=== PATIENT | male | born 1960 | race Hispanic/Latino ===

== ENCOUNTER 2018-07-17 10:52 | Inpatient (IN) | payer MEDICARE ==
[2018-07-17 10:52] VITALS: BMI 21.5
[~2018-07-17 10:52] MED LIST: HEMOSTATIC MATRIX 10 ML DIS.NEEDLE TOP ONE
--- NOTE | 2018-07-17 11:38 | ED PDOC ---
HPI: General Adult Time Seen by Provider: 07/17/18 11:22 Chief Complaint (Nursing): Abnormal Labs Chief Complaint (Provider): abnormal labs History Per: Patient, Family History/Exam Limitations: no limitations Onset/Duration Of Symptoms: Days Current Symptoms Are (Timing): Still Present Additional Complaint(s): Carlos Vazquez is a 58 year old male, with a past medical history of Asperger's syndrome, who presents to the emergency department for evaluation of abnormal labs. Patient's edge dyer state on March patient couldn't walk and was spastic from the waist down. Patient was seen by Dr. Alvarez in [place] who believed it might be neurological. He was evaluated by Dr. Cervantes, neurologist, who found patient to have low potassium which was treated and a bulging disc. Patient was found to have low potassium and was advised to come to the ER. He denies any current pain, numbness or tingling, headache, cough, congestion, chest pain, shortness of breath, nausea, vomit, diarrhea, abdominal pain, dizziness or other medical complaints. PMD: None provided. Past Medical History Reviewed: Historical Data, Nursing Documentation, Vital Signs - Medical History PMH: Denies: Chronic Kidney Disease Other PMH: Asperger's syndrome - Surgical History Surgical History: No Surg Hx - Family History Family History: States: Unknown Family Hx - Home Medications Home Medications: Ambulatory Orders Medication Instructions Recorded Magnesium Oxide [Mag-Oxide 400 mg PO 5XD #14 tablet 04/15/18 Magnesium] Potassium Chloride [K-Dur 20 mEq 40 meq PO DAILY #5 tab 04/15/18 ER Tab] - Allergies Allergies/Adverse Reactions: Allergies Allergy/AdvReac Type Severity Reaction Status Date / Time No Known Allergies Allergy Verified 04/12/18 18:07 Review of Systems ROS Statement: Except As Marked, All Systems Reviewed And Found Negative ENT: Negative for: Nose Congestion Cardiovascular: Negative for: Chest Pain Respiratory: Negative for: Cough, Shortness of Breath Gastrointestinal: Negative for: Nausea, Vomiting, Abdominal Pain, Diarrhea Neurological: Negative for: Numbness (tingling), Headache, Dizziness Physical Exam - Reviewed Nursing Documentation Reviewed: Yes Vital Signs Reviewed: Yes - Physical Exam Appears: Positive for: No Acute Distress Head Exam: Positive for: ATRAUMATIC, NORMAL INSPECTION, NORMOCEPHALIC Skin: Positive for: Normal Color, Warm, Dry Eye Exam: Positive for: Normal appearance, EOMI, PERRL Neck: Positive for: Normal, Painless ROM Cardiovascular/Chest: Positive for: Regular Rate, Rhythm. Negative for: Murmur Respiratory: Positive for: Normal Breath Sounds. Negative for: Respiratory Distress Gastrointestinal/Abdominal: Positive for: Normal Exam, Soft. Negative for: Tenderness, Guarding, Rebound Back: Positive for: Normal Inspection. Negative for: L CVA Tenderness, R CVA Tenderness, Vertebral Tenderness Extremity: Negative for: Normal ROM (Stiffness of the arms with limited ROM), Deformity, Swelling Neurologic/Psych: Positive for: Alert, Oriented Medical Decision Making Medical Decision Making: Time: 11:22 Initial Impression: Abnormal labs Initial Plan: --ABO/RH Type --Type and screen --CMP --Troponin I --CBC w/ differential --PTT --PT --Chest portable [RAD] --Sodium Chloride 500 ml IV 100 mls/hr --Reevaluation Scribe Attestation: Documented by José Jarvis, acting as a scribe for Nitish Almeida MD. Provider Scribe Attestation: All medical record entries made by the Scribe were at my direction and personally dictated by me. I have reviewed the chart and agree that the record accurately reflects my personal performance of the history, physical exam, medical decision making, and the department course for this patient. I have also personally directed, reviewed, and agree with the discharge instructions and disposition. 1239: Spoke with Dr. Garza. Will admit for further evaluation of cervical stenosis, abnormal lab hx, and muscle stiffness. Disposition - Clinical Impression Clinical Impression: Hypokalemia, Cervical stenosis of spine - Patient ED Disposition Is Patient to be Admitted: Yes Counseled Patient/Family Regarding: Studies Performed, Diagnosis - Disposition Disposition Time: 12:41 Condition: FAIR - Pt Status Changed To: Hospital Disposition Of: Inpatient - Admit Certification Admit to Inpatient:: After my assessment, the patient will require hospitalization for at least two midnights. This is because of the severity of symptoms shown, intensity of services needed, and/or the medical risk in this patient being treated as an outpatient. - POA Present On Arrival: None
[2018-07-17] MEDS ORDERED: Sodium Chloride 0.9% 500 ML IV STA (11:43)
--- NOTE | 2018-07-17 12:12 | RAD ---
Date of service: 07/17/2018 HISTORY: dyspnea COMPARISON: No prior. FINDINGS: LUNGS: No active pulmonary disease. PLEURA: No significant pleural effusion identified, no pneumothorax apparent. CARDIOVASCULAR: No aortic atherosclerotic calcification present. Normal cardiac size. No pulmonary vascular congestion. OSSEOUS STRUCTURES: No significant abnormalities. VISUALIZED UPPER ABDOMEN: Normal. OTHER FINDINGS: None. IMPRESSION: No active disease.
--- NOTE | 2018-07-17 12:52 | CP.PCM.HP ---
<Rob Da Silva - Last Filed: 07/17/18 16:01> History of Present Illness - History of Present Illness History of Present Illness: 58 year old male, with a PMH of Asperger's syndrome, who presents to the ED for evaluation of abnormal labs. Patient states couldn't walk and was spastic from the waist down last March. Patient was seen by Dr. Alvarez in [place] and also he was evaluated by Dr. Cervantes who found patient to have a bulging disc in cervical spine with stenosis. Patient reports following Dr Wright who scheduled him for laminectomy tomorrow. Patient was found to have low potassium and was advised to come to the ER. He denies any current pain, numbness or tingling, headache, cough, congestion, chest pain, shortness of breath, nausea, vomit, diarrhea, abdominal pain, dizziness or other medical complaints. PMD: None provided. PMH: Asperger's syndrome PSH: denies FMH: father HTN Meds: no meds at home NKDA SH: denies etoh, tobacco, ilicit drugs use. Present on Admission - Present on Admission Any Indicators Present on Admission: No Review of Systems - Review of Systems All systems: reviewed and no additional remarkable complaints except (HPI) Past Patient History - Past Medical History & Family History Past Medical History?: No - Past Social History Smoking Status: Never Smoked - CARDIAC Hx Cardiac Disorders: No - PULMONARY Hx Respiratory Disorders: No - NEUROLOGICAL Hx Neurological Disorder: No - HEENT Hx HEENT Problems: No - RENAL Hx Chronic Kidney Disease: No - ENDOCRINE/METABOLIC Hx Endocrine Disorders: No - HEMATOLOGICAL/ONCOLOGICAL Hx Blood Disorders: No - INTEGUMENTARY Hx Dermatological Problems: No - MUSCULOSKELETAL/RHEUMATOLOGICAL Hx Musculoskeletal Disorders: Yes Other/Comment: Bilateral knee pain and back pain - GASTROINTESTINAL Hx Gastrointestinal Disorders: No - GENITOURINARY/GYNECOLOGICAL Hx Genitourinary Disorders: No - PSYCHIATRIC Hx Psychophysiologic Disorder: No Hx Substance Use: No - SURGICAL HISTORY Hx Surgeries: No - ANESTHESIA Hx Anesthesia: No Hx Anesthesia Reactions: No Meds Allergies/Adverse Reactions: Allergies Allergy/AdvReac Type Severity Reaction Status Date / Time No Known Allergies Allergy Verified 07/20/18 16:11 Physical Exam - Constitutional Appears: No Acute Distress - Head Exam Head Exam: NORMAL INSPECTION - Respiratory Exam Respiratory Exam: Clear to Auscultation Bilateral, NORMAL BREATHING PATTERN - Cardiovascular Exam Cardiovascular Exam: REGULAR RHYTHM, +S1, +S2 - GI/Abdominal Exam GI & Abdominal Exam: Normal Bowel Sounds, Soft. absent: Distended, Tenderness - Extremities Exam Extremities exam: Negative for: pedal edema - Neurological Exam Neurological exam: Alert, Oriented x3 - Psychiatric Exam Psychiatric exam: Normal Mood Results - Labs Result Diagrams: 07/17/18 12:40 07/17/18 12:40 Assessment & Plan - Assessment and Plan (Free Text) Assessment: 58 year old male, with a PMH of Asperger's syndrome admitted due to hypokalemia, patient is scheduled for OR tomorrow, cervical stenosis. Plan: - stable - labs reviewed, low K, replaced - f/u labs in am - CXR negative for lung disease - Neurosurgery consult, recommendations appreciated - scheduled for OR tomorrow - Medically stable for surgery - rest of plan as ordered. Case seen and examined with Dr Garza. <Eleazar Garza - Last Filed: 07/23/18 17:07> Results - Vital Signs Recent Vital Signs: Last Vital Signs Temp 98.4 F 07/20/18 12:43 Pulse 74 07/20/18 12:43 Resp 20 07/20/18 12:43 BP 110/75 07/20/18 12:43 Pulse Ox 97 07/20/18 12:43 - Labs Result Diagrams: 07/20/18 04:50 07/20/18 04:50 Assessment & Plan (1) Cervical stenosis of spine Status: Acute (2) Renal insufficiency Status: Acute - Assessment and Plan (Free Text) Plan: I was present during evaluation and discussed with Dr Avinash crump plans of care and tx, Eleazar Garza M.D.
[2018-07-17 13:00] LABS: BASO # 0.1 K/uL (0.0-0.2); BASO % 1.2 % (0.0-2.0); EOS # 0.2 K/uL (0.0-0.7); EOS % 2.1 % (0.0-4.0); HEMOGLOBIN 14.6 g/dL (12.0-18.0); LYMPH # 1.3 K/uL (1.0-4.3); LYMPH % 13.1 % (20.0-40.0); MEAN CELL VOLUME 92.9 fl (80.0-94.0); MEAN CORPUSCULAR HEMOGLOBIN 30.7 pg (27.0-31.0); MEAN PLATELET VOLUME 9.1 fl (7.2-11.7); MONO # 0.6 K/uL (0.0-0.8); MONO % 5.6 % (0.0-10.0); NEUT # 7.8 K/uL (1.8-7.0); NRBC % 0.1 % (0.0-0.0); RBC 4.77 Mil/uL (4.40-5.90); RED CELL DISTRIBUTION WIDTH 14.4 % (11.5-14.5)
[2018-07-17] MEDS ORDERED: Magnesium Oxide 400 mg Tab UD PO SCH (13:00)
[2018-07-17 13:05] LABS: PROTHROMBIN TIME 11.6 Seconds (9.8-13.1)
[2018-07-17 13:07] LABS: PARTIAL THROMBOPLASTIN TIME 31.5 Seconds (25.6-37.1)
[2018-07-17 13:10] LABS: ALB/GLOB RATIO 1.6 (1.0-2.1); ALBUMIN 4.5 g/dL (3.5-5.0); ALT/SGPT 32 U/L (21-72); AST/SGOT 26 U/L (17-59); BLOOD UREA NITROGEN 26 mg/dl (9-20); CALCIUM 9.8 mg/dL (8.4-10.2); GFR NON-AFRICAN AMERICAN 37
[2018-07-17] MEDS ORDERED: Potassium Chloride 20 mEq ER Tab PO STA (14:15)
[2018-07-17] MEDS ORDERED: Potassium Chloride 20 mEq ER Tab PO ONE (14:26)
[2018-07-18] MEDS ORDERED: Dextrose 5%/Lactated Ringer's 1,000 ML IV SCH ×2 (06:00)
[2018-07-18 06:21] LABS: CALCIUM 9.7 mg/dL (8.4-10.2)
[2018-07-18] MEDS ORDERED: Succinylcholine 200 mg/10 ml Inj IV ONE (07:13)
[2018-07-18] MEDS ORDERED: Propofol 10 mg/ml Inj (20 ML) ONE (07:13)
[2018-07-18] MEDS ORDERED: Bupivacaine 0.5% Inj(30mL) ONE (07:17)
[2018-07-18] MEDS ORDERED: Absorbable Gelatin Sponge Size 12-7 ONE (07:17)
[2018-07-18] MEDS ORDERED: Lidocaine 1% w Epi 1:100,000 Inj ONE (07:17)
[2018-07-18] MEDS ORDERED: Lidocaine 1% Inj (20ml) ONE (07:17)
[2018-07-18] MEDS ORDERED: ceFAZolin IV 1 gm in Dextrose 2 GM/100 ML BAG IVPB ONE (07:18)
[2018-07-18] MEDS ORDERED: Bacitracin Ointment 30 GM TUBE ONE (07:18)
--- NOTE | 2018-07-18 07:27 | CP.PCM.CON ---
History of Present Illness - History of Present Illness History of Present Illness: Neurosurgical consult: Dr. Wright Patient is a 58 y/o male who was admitted for treatment of abnormal labs. Neurosurgery was consulted due to the patient's c/o LE weakness, greater to the left which has been progressively worsening over the past 4 months. This has affected his activities of daily living, especially ambulating, and requires a cane/walker. He has tried and failed conservative management. Patient was seen by Dr. Cervantes and it was determined that the patient developed cervical stenosis due to disc herniation. The patient currently has no complaints of pain/numbness/tingling. He also denies CP/SOB/N/V/D/fever/dysuria/melena. Review of Systems - Review of Systems All systems: reviewed and no additional remarkable complaints except Review of Systems: as per HPI Past Patient History - Past Medical History & Family History Past Medical History?: No Past Family History: Reviewed and not pertinent - Past Social History Smoking Status: Never Smoked Alcohol: None Drugs: Denies - CARDIAC Hx Cardiac Disorders: No - PULMONARY Hx Respiratory Disorders: No - NEUROLOGICAL Hx Neurological Disorder: Yes Other/Comment: aspergen's syndrome - HEENT Hx HEENT Problems: No - RENAL Hx Chronic Kidney Disease: No - ENDOCRINE/METABOLIC Hx Endocrine Disorders: No - HEMATOLOGICAL/ONCOLOGICAL Hx Blood Disorders: No - INTEGUMENTARY Hx Dermatological Problems: No - MUSCULOSKELETAL/RHEUMATOLOGICAL Hx Musculoskeletal Disorders: Yes Hx Falls: No - GASTROINTESTINAL Hx Gastrointestinal Disorders: No - GENITOURINARY/GYNECOLOGICAL Hx Genitourinary Disorders: No - PSYCHIATRIC Hx Psychophysiologic Disorder: No Hx Substance Use: No - SURGICAL HISTORY Hx Surgeries: No - ANESTHESIA Hx Anesthesia: No Hx Anesthesia Reactions: No Meds Allergies/Adverse Reactions: Allergies Allergy/AdvReac Type Severity Reaction Status Date / Time No Known Allergies Allergy Verified 04/12/18 18:07 - Medications Medications: Current Medications Dextrose/Lactated Ringer's (Dextrose 5%/Lactated Ringer's) 1,000 mls @ 100 mls/hr IV .Q10H YUE Stop: 07/19/18 00:57 Last Admin: 07/18/18 06:23 Dose: 100 mls/hr Physical Exam - Constitutional Appears: Well, No Acute Distress - Head Exam Head Exam: ATRAUMATIC, NORMOCEPHALIC - Eye Exam Eye Exam: EOMI, Normal appearance, PERRL - ENT Exam ENT Exam: Mucous Membranes Moist - Neck Exam Additional comments: no masses, no lesions, no deformities no midline or paraspinal tenderness Gross NVI distally to UE HAGEN, diminished motor to LUE and LLE radial pulses intact neg clonus - Respiratory Exam Respiratory Exam: NORMAL BREATHING PATTERN - Cardiovascular Exam Cardiovascular Exam: +S1, +S2 - GI/Abdominal Exam GI & Abdominal Exam: Soft. absent: Tenderness - Neurological Exam Neurological exam: Alert, Oriented x3 - Psychiatric Exam Psychiatric exam: Normal Affect, Normal Mood - Skin Skin Exam: Normal Color, Warm Results - Vital Signs Recent Vital Signs: Last Vital Signs Temp 98.2 F 07/18/18 01:42 Pulse 67 07/18/18 01:42 Resp 20 07/18/18 01:42 BP 128/75 07/18/18 01:42 Pulse Ox 99 07/18/18 01:42 - Labs Result Diagrams: 07/17/18 12:40 07/18/18 05:20 Labs: Laboratory Results - last 24 hr 07/17/18 07/17/18 07/17/18 12:40 12:40 12:40 WBC 10.0 RBC 4.77 Hgb 14.6 Hct 44.3 MCV 92.9 MCH 30.7 MCHC 33.0 RDW 14.4 Plt Count 188 MPV 9.1 Neut % (Auto) 78.0 H Lymph % (Auto) 13.1 L Reeves % (Auto) 5.6 Eos % (Auto) 2.1 Baso % (Auto) 1.2 Neut # (Auto) 7.8 H Lymph # (Auto) 1.3 Reeves # (Auto) 0.6 Eos # (Auto) 0.2 Baso # (Auto) 0.1 PT INR APTT Sodium 140 Potassium 3.4 L Chloride 98 Carbon Dioxide 29 Anion Gap 16 BUN 26 H Creatinine 1.9 H Est GFR ( Amer) 44 Est GFR (Non-Af Amer) 37 Random Glucose 102 Calcium 9.8 Total Bilirubin 0.9 AST 26 ALT 32 Alkaline Phosphatase 56 Troponin I < 0.0120 Total Protein 7.4 Albumin 4.5 Globulin 2.9 Albumin/Globulin Ratio 1.6 Blood Type O POSITIVE Blood Type Confirm Antibody Screen Negative BBK History Checked No verified bt 11/20/18 11/20/18 11/21/18 12:40 13:16 05:20 WBC RBC Hgb Hct MCV MCH MCHC RDW Plt Count MPV Neut % (Auto) Lymph % (Auto) Reeves % (Auto) Eos % (Auto) Baso % (Auto) Neut # (Auto) Lymph # (Auto) Reeves # (Auto) Eos # (Auto) Baso # (Auto) PT 11.6 INR 1.0 APTT 31.5 Sodium 138 Potassium 3.6 Chloride 99 Carbon Dioxide 28 Anion Gap 15 BUN 26 H Creatinine 1.9 H Est GFR ( Amer) 44 Est GFR (Non-Af Amer) 37 Random Glucose 109 Calcium 9.7 Total Bilirubin AST ALT Alkaline Phosphatase Troponin I Total Protein Albumin Globulin Albumin/Globulin Ratio Blood Type Blood Type Confirm O POSITIVE Antibody Screen BBK History Checked - Impressions Impression: Accession No. : [id number] Patient Name / ID : DAWN Dinh / [id number] Exam Date : 06/13/2018 12:18:52 ( Approved ) Study Comment : Sex / Age : M / 58Y Creator : Tho Smith MD Dictator : Tho Smith MD Airflight Attendants Supervisor : Lan Engineer : Tho Smith MD Approver2 : Report Date : 06/13/2018 13:20:47 My Comment : Date of service: 06/13/2018 PROCEDURE: MR CERVICAL SPINE WITHOUT CONTRAST HISTORY: PAIN COMPARISON: None available. TECHNIQUE: Multiecho multiplanar sequences were performed through the cervical spine without the use of intravenous contrast. FINDINGS: Normal lordotic curvature. Craniocervical junction unremarkable. Vertebral body heights preserved. No marrow signal abnormality. Normal cervical cord. No paraspinal abnormality. C2-C3: No disc herniation, spinal canal stenosis or neural foraminal narrowing. C3-C4: There is a large asymmetric disc protrusion left greater than right. This produces severe central canal stenosis with flattening of the cervical cord and cord edema. There is also foraminal stenosis left greater than right C4-C5: Mild disc bulge. C5-C6: Disc bulge and osteophytic ridge with mild central stenosis and bilateral foraminal stenosis C6-C7: Disc bulge with bilateral foraminal stenosis. Mild central stenosis C7-T1: No disc herniation, spinal canal stenosis or neural foraminal narrowing. OTHER FINDINGS: None. IMPRESSION: Multilevel degenerative changes. Severe stenosis with cord flattening and cord edema at C3-4 Assessment & Plan (1) Cervical stenosis of spine Assessment and Plan: -OR today for anterior cervical discectomy and fusion at C3-C4 -It was discussed with the patient that he may need a cervical laminectomy and fusion in the future -Risks/benefits/alternatives were discussed with the patient in detail. The patient expresses understanding and agrees to proceed with above procedure. -above d/w Dr. Wright in agreement Status: Acute
[2018-07-18] MEDS ORDERED: Midazolam 2 MG/2 ML VIAL ONE (07:38)
[2018-07-18] MEDS ORDERED: Sodium Chloride 0.9% 1,000 ML IV ONE (07:40)
[2018-07-18] MEDS ORDERED: Lactated Ringer's 1,000 ML IV ONE (07:50)
[2018-07-18] MEDS ORDERED: Rocuronium 10 mg/ml (5 ml) ONE (07:55)
[2018-07-18] MEDS ORDERED: Phenylephrine 10 mg/ml Inj ONE (08:01)
[2018-07-18] MEDS ORDERED: ePHEDrine 50 mg/ml Inj ONE (08:05)
[2018-07-18] MEDS ORDERED: Neostigmine 1:1000 (1 mg/ml) Inj ONE (08:29)
[2018-07-18] MEDS ORDERED: Dexamethasone 4 mg/1 ml ONE (08:32)
[2018-07-18] MEDS ORDERED: Esmolol 100 mg/10ml Inj IV ONE (08:51)
[2018-07-18] MEDS ORDERED: HYDROmorphone 0.5 mg/0.5 ml ISec IVP PRN (09:12)
[2018-07-18] MEDS ORDERED: Sodium Chloride 0.9% 500 ML IV ONE (09:15)
[2018-07-18] MEDS ORDERED: Lactated Ringer's 1,000 ML IV SCH ×2 (09:30→10:15)
[2018-07-18] MEDS ORDERED: Morphine 4 MG/ML VIAL IVP PRN (10:14)
[2018-07-18] MEDS ORDERED: Oxycodone/Acetaminophen 5/325 mg Tab PO PRN ×2 (10:14)
--- NOTE | 2018-07-18 10:24 | PCM.SURG1 ---
Surgeon's Initial Post Op Note - Surgeon's Notes Surgeon: Estuardo Wright MD Authorization Nurse: Ramon Birmingham PA-C Type of Anesthesia: General Endo Anesthesia Administered By: Linda PABLO Pre-Operative Diagnosis: Cervical stenosis Operative Findings: Cervical stenosis at C3-C4 Post-Operative Diagnosis: as above Operation Performed: Anterior cervical discectomy and fusion at C3-C4 Specimen/Specimens Removed: none Estimated Blood Loss: EBL {In ML}: 10 Blood Products Given: N/A Drains Used: Bubba Pichardo Post-Op Condition: Good Date of Surgery/Procedure: 07/18/18 Time of Surgery/Procedure: 08:05
--- NOTE | 2018-07-18 12:05 | OP ---
PROCEDURE DATE: 07/18/2018 PREOPERATIVE DIAGNOSIS: Cervical spondylosis with myelopathy. POSTOPERATIVE DIAGNOSIS: Cervical spondylosis with myelopathy. PROCEDURES: Partial vertebrectomy of C3-C4, diskectomy of C3-C4, interbody fusion of C3-C4 using polyetheretherketone and bone, plating instrumentation by using a spinal element from C3-C4. SURGEON: Estuardo Wright M.D. WEATHERIZATION OPERATIONS MANAGER: Ramon Birmingham, physician respiratory therapy assistant, who helped me perform the surgery, stayed from the beginning to the end. DESCRIPTION OF PROCEDURE: The patient was brought to the operating room, anesthetized with general endotracheal anesthesia, placed in a supine position. Head was placed on a donut. Care was taken to protect all the pressure points. Right side of the neck was thoroughly prepped in the same sterile manner. After marking the skin incision for vertebrectomy, after prepping and draping the area, skin has been incised. Bleeding skin has been controlled with bipolar jalousie installer. After using a Bovie jalousie installer, platysma has been cut. Dissection has been carried out to trachea and esophagus medially. Sternomastoid carried out laterally. Prevertebral fascia has been cauterized and cut. Identification of levels has been done with the help of fluoroscopy. Longus colli has been detached from attachment of vertebral bodies of C3-C4. Dyonics retractor has been applied. Rest of the operation has been carried out under microscopic magnification and illumination. PARTIAL VERTEBRECTOMY OF C3 AND C4 AND DISKECTOMY OF C3-C4: By using a high-speed drill, the vertebral bodies of C3 and C4 have been drilled. Drilling was continued posteriorly. Intermittent diskectomy has been performed. Partial vertebrectomy including removal of the cartilage and placing the half of the vertebral body done. Intermittent diskectomy was performed. There was calcified that has been removed and posterior longitudinal ligament has been further opened. Dura has been decompressed from side to side. INTERBODY FUSION OF THE C3-C4 BY USING A PEEK AND BONE: A PEEK implant has been brought in and filled with demineralized bone, and gently tapped into space creating a partial vertebrectomy of C3-4. Position has been confirmed to be good. PLATING AND INSTRUMENTATION C3 TO C4 BY USING SPINAL ELEMENTS AMENDIA PLATE: The plate has been placed at vertebral bodies of C3-5 by using 12-mm screw. It has been secured under fluoroscopic-guided control. Hemostasis was best achieved. Bubba drain was placed in the wound and brought out through a separate stab neck skin incision. Platysma was closed with 3-0 Vicryl. Skin has been closed with intradermal 3-0 Vicryl stitches. The patient tolerated the procedure. After procedure, mobilized to the recovery room in stabilized condition. Estuardo Wright MD
[2018-07-18] MEDS ORDERED: Dexamethasone 4 MG in Sodium Chloride 0.9% 50 ML IVPB SCH (16:00)
[2018-07-18] MEDS: Dexamethasone 4 mg/1 ml IV SCH ×2 (17:29→22:00)
[2018-07-18] MEDS: ceFAZolin IV 1 gm in Dextrose 1 GM/50 ML BAG IVPB SCH (18:05)
[2018-07-19] MEDS: ceFAZolin IV 1 gm in Dextrose 1 GM/50 ML BAG IVPB SCH ×3 (01:16→17:04)
[2018-07-19] MEDS: Dexamethasone 4 mg/1 ml IV SCH ×2 (03:58→11:08)
[2018-07-19 05:48] LABS: HEMOGLOBIN 13.3 g/dL (12.0-18.0); MEAN CORPUSCULAR HEMOGLOBIN 30.7 pg (27.0-31.0); MEAN CORPUSCULAR HGB CONC 33.8 g/dL (33.0-37.0); RBC 4.34 Mil/uL (4.40-5.90); RED CELL DISTRIBUTION WIDTH 14.2 % (11.5-14.5); WHITE BLOOD COUNT 12.1 K/uL (4.8-10.8)
[2018-07-19 06:05] LABS: CALCIUM 9.8 mg/dL (8.4-10.2)
--- NOTE | 2018-07-19 12:00 | RAD ---
Date of service: 07/18/2018 PROCEDURE: Intraoperative Fluoroscopy. HISTORY: OR FLUORO FINDINGS: Fluoroscopic assistance was provided for ACDL. Please refer to the operative report from KASSANDRA Stapleton DR, MD. Total fluoroscopic time (continuous mode) utilized during the procedure 6.7 seconds.
--- NOTE | 2018-07-19 14:26 | CARD ---
APPROVED REPORT Date of service: 07/18/2018 EKG Measurement Heart [id number] CT [id number] <Conclusion> Sinus rhythm with short CT Junctional ST depression, probably normal Borderline ECG
[2018-07-20 05:17] LABS: HEMOGLOBIN 13.5 g/dL (12.0-18.0); MEAN CORPUSCULAR HEMOGLOBIN 30.9 pg (27.0-31.0); MEAN CORPUSCULAR HGB CONC 33.9 g/dL (33.0-37.0); RBC 4.39 Mil/uL (4.40-5.90); RED CELL DISTRIBUTION WIDTH 13.8 % (11.5-14.5); WHITE BLOOD COUNT 14.9 K/uL (4.8-10.8)
[2018-07-20 05:29] LABS: CALCIUM 9.7 mg/dL (8.4-10.2)
[2018-07-20 08:26] VITALS: RESP 20; O2SAT 97
--- NOTE | 2018-07-20 09:55 | CP.PCM.PN ---
Subjective - Date & Time of Evaluation Date of Evaluation: 07/20/18 Time of Evaluation: 09:52 - Subjective Subjective: Patient feels a little stiffness in his neck. He says tingling in hand the same, but his legs feel a little better. Denies CP/SOB/dizziness. Objective - Vital Signs/Intake and Output Vital Signs (last 24 hours): Temp Pulse Resp BP Pulse Ox 97.5 F L 79 20 141/84 97 07/20/18 08:25 07/20/18 08:25 07/20/18 08:25 07/20/18 08:25 07/20/18 08:25 Intake and Output: 07/20/18 07/20/18 06:59 18:59 Intake Total 400 Output Total 5 Balance 395 - Medications Medications: Current Medications Acetaminophen (Tylenol 325mg Tab) 650 mg PO Q4 PRN PRN Reason: Fever 101 degrees fahrenheit Cyclobenzaprine HCl (Flexeril) 10 mg PO Q8 PRN PRN Reason: Muscle spasm Last Admin: 07/19/18 17:09 Dose: 10 mg Docusate Sodium (Colace) 100 mg PO BID YUE Last Admin: 07/20/18 09:51 Dose: Not Given Morphine Sulfate (Morphine) 2 mg IVP Q4 PRN PRN Reason: Pain, severe (8-10) Oxycodone/Acetaminophen (Percocet 5/325 Mg Tab) 2 tab PO Q4 PRN PRN Reason: Pain, moderate (4-7) Stop: 07/21/18 10:15 Oxycodone/Acetaminophen (Percocet 5/325 Mg Tab) 1 tab PO Q4 PRN PRN Reason: Pain, Mild (1-3) Stop: 07/21/18 10:15 - Labs Labs: 07/20/18 04:50 07/20/18 04:50 PT 11.6 Seconds (9.8-13.1) 07/17/18 12:40 INR 1.0 07/17/18 12:40 APTT 31.5 Seconds (25.6-37.1) 07/17/18 12:40 - Neck Exam Additional comments: JUDITH pulled, 5-5 last 24 hrs. Incision intact, dry, no erythema, minimal swelling. Dressing changed. +ROM fingers, wrists, ankles/toes PT appreciated, recommend TCU Assessment and Plan (1) Cervical stenosis of spine Assessment & Plan: POD#2 s/p C3/C4 ACDF PT/OT stable for d/c to TCU soft collar cont pain medications prn d/w dr. Wright, agrees with above Status: Acute
[2018-07-20 12:44] VITALS: BP 110/75; PULSE 74; TEMP 98.4
--- NOTE | 2018-07-20 14:38 | CP.PCM.DIS ---
<Rob Da Silva - Last Filed: 07/20/18 14:39> Provider - Provider Date of Admission: 07/17/18 12:08 Attending physician: Eleazar Garza MD Time Spent in preparation of Discharge (in minutes): 37 Diagnosis - Discharge Diagnosis (1) Cervical stenosis of spine Status: Acute (2) Hypokalemia Status: Acute (3) Ataxia Status: Acute Hospital Course - Lab Results Lab Results: Most Recent Lab Values WBC 14.9 K/uL (4.8-10.8) H 07/20/18 04:50 RBC 4.39 Mil/uL (4.40-5.90) L 07/20/18 04:50 Hgb 13.5 g/dL (12.0-18.0) 07/20/18 04:50 Hct 39.9 % (35.0-51.0) 07/20/18 04:50 MCV 91.0 fl (80.0-94.0) 07/20/18 04:50 MCH 30.9 pg (27.0-31.0) 07/20/18 04:50 MCHC 33.9 g/dL (33.0-37.0) 07/20/18 04:50 RDW 13.8 % (11.5-14.5) 07/20/18 04:50 Plt Count 152 K/uL (130-400) 07/20/18 04:50 MPV 9.1 fl (7.2-11.7) 07/17/18 12:40 Neut % (Auto) 78.0 % (50.0-75.0) H 07/17/18 12:40 Lymph % (Auto) 13.1 % (20.0-40.0) L 07/17/18 12:40 Nash % (Auto) 5.6 % (0.0-10.0) 07/17/18 12:40 Eos % (Auto) 2.1 % (0.0-4.0) 07/17/18 12:40 Baso % (Auto) 1.2 % (0.0-2.0) 07/17/18 12:40 Neut # (Auto) 7.8 K/uL (1.8-7.0) H 07/17/18 12:40 Lymph # (Auto) 1.3 K/uL (1.0-4.3) 07/17/18 12:40 Nash # (Auto) 0.6 K/uL (0.0-0.8) 07/17/18 12:40 Eos # (Auto) 0.2 K/uL (0.0-0.7) 07/17/18 12:40 Baso # (Auto) 0.1 K/uL (0.0-0.2) 07/17/18 12:40 PT 11.6 Seconds (9.8-13.1) 07/17/18 12:40 INR 1.0 07/17/18 12:40 APTT 31.5 Seconds (25.6-37.1) 07/17/18 12:40 Sodium 137 mmol/l (132-148) 07/20/18 04:50 Potassium 3.9 MMOL/L (3.6-5.0) 07/20/18 04:50 Chloride 98 mmol/L (98-107) 07/20/18 04:50 Carbon Dioxide 26 mmol/L (22-30) 07/20/18 04:50 Anion Gap 17 (10-20) 07/20/18 04:50 BUN 42 mg/dl (9-20) H 07/20/18 04:50 Creatinine 1.9 mg/dl (0.8-1.5) H 07/20/18 04:50 Est GFR ( Amer) 44 07/20/18 04:50 Est GFR (Non-Af Amer) 37 07/20/18 04:50 Random Glucose 130 mg/dL (75-110) H 07/20/18 04:50 Calcium 9.7 mg/dL (8.4-10.2) 07/20/18 04:50 Total Bilirubin 0.9 mg/dl (0.2-1.3) 07/17/18 12:40 AST 26 U/L (17-59) 07/17/18 12:40 ALT 32 U/L (21-72) 07/17/18 12:40 Alkaline Phosphatase 56 U/L (38-126) 07/17/18 12:40 Troponin I < 0.0120 ng/mL (0.00-0.120) 07/17/18 12:40 Total Protein 7.4 G/DL (6.3-8.2) 07/17/18 12:40 Albumin 4.5 g/dL (3.5-5.0) 07/17/18 12:40 Globulin 2.9 gm/dL (2.2-3.9) 07/17/18 12:40 Albumin/Globulin Ratio 1.6 (1.0-2.1) 07/17/18 12:40 Blood Type O POSITIVE 07/17/18 12:40 Blood Type Confirm O POSITIVE 07/17/18 13:16 Antibody Screen Negative 07/17/18 12:40 BBK History Checked No verified bt 07/17/18 12:40 - Hospital Course Hospital Course: 58 year old male, with a PMH of Asperger's syndrome who was admitted due to ataxia and a bulging disc in cervical spine with stenosis. Patient underwent laminectomy with by Dr Wright. Currently POD 2 s/p C3/C4 ACDF. Working on PT/OT. Patient doing well, stable, going to TCU to continue PT. Discharge Exam - Head Exam Head Exam: NORMAL INSPECTION - Neck Exam Additional comments: Incision looks clean, dry, drainage removed. - Respiratory Exam Respiratory Exam: Clear to PA & Lateral, NORMAL BREATHING PATTERN - Cardiovascular Exam Cardiovascular Exam: REGULAR RHYTHM, +S1, +S2 - GI/Abdominal Exam GI & Abdominal Exam: Normal Bowel Sounds, Soft. absent: Distended, Tenderness - Neurological Exam Neurological exam: Alert, Oriented x3 Discharge Plan - Follow Up Plan Condition: FAIR Disposition: TRANSF TO SNF Instructions: Posterior Cervical Fusion (DC), Intervertebral Discectomy (DC), Postspine Surgery Precautions Additional Instructions: discharge pt to tcu I was present during discharge and discussed with Dr Avinash crump plans of care and tx, Referrals: Estuardo Wright MD [Staff Provider] - <Eleazar Garza - Last Filed: 07/23/18 17:08> Provider - Provider Date of Admission: 07/17/18 12:08 Attending physician: Eleazar Garza MD Diagnosis - Discharge Diagnosis (1) Cervical stenosis of spine Status: Acute (2) Renal insufficiency Status: Acute Hospital Course - Lab Results Lab Results: Most Recent Lab Values WBC 14.9 K/uL (4.8-10.8) H 07/20/18 04:50 RBC 4.39 Mil/uL (4.40-5.90) L 07/20/18 04:50 Hgb 13.5 g/dL (12.0-18.0) 07/20/18 04:50 Hct 39.9 % (35.0-51.0) 07/20/18 04:50 MCV 91.0 fl (80.0-94.0) 07/20/18 04:50 MCH 30.9 pg (27.0-31.0) 07/20/18 04:50 MCHC 33.9 g/dL (33.0-37.0) 07/20/18 04:50 RDW 13.8 % (11.5-14.5) 07/20/18 04:50 Plt Count 152 K/uL (130-400) 07/20/18 04:50 MPV 9.1 fl (7.2-11.7) 07/17/18 12:40 Neut % (Auto) 78.0 % (50.0-75.0) H 07/17/18 12:40 Lymph % (Auto) 13.1 % (20.0-40.0) L 07/17/18 12:40 Nash % (Auto) 5.6 % (0.0-10.0) 07/17/18 12:40 Eos % (Auto) 2.1 % (0.0-4.0) 07/17/18 12:40 Baso % (Auto) 1.2 % (0.0-2.0) 07/17/18 12:40 Neut # (Auto) 7.8 K/uL (1.8-7.0) H 07/17/18 12:40 Lymph # (Auto) 1.3 K/uL (1.0-4.3) 07/17/18 12:40 Nash # (Auto) 0.6 K/uL (0.0-0.8) 07/17/18 12:40 Eos # (Auto) 0.2 K/uL (0.0-0.7) 07/17/18 12:40 Baso # (Auto) 0.1 K/uL (0.0-0.2) 07/17/18 12:40 PT 11.6 Seconds (9.8-13.1) 07/17/18 12:40 INR 1.0 07/17/18 12:40 APTT 31.5 Seconds (25.6-37.1) 07/17/18 12:40 Sodium 137 mmol/l (132-148) 07/20/18 04:50 Potassium 3.9 MMOL/L (3.6-5.0) 07/20/18 04:50 Chloride 98 mmol/L (98-107) 07/20/18 04:50 Carbon Dioxide 26 mmol/L (22-30) 07/20/18 04:50 Anion Gap 17 (10-20) 07/20/18 04:50 BUN 42 mg/dl (9-20) H 07/20/18 04:50 Creatinine 1.9 mg/dl (0.8-1.5) H 07/20/18 04:50 Est GFR ( Amer) 44 07/20/18 04:50 Est GFR (Non-Af Amer) 37 07/20/18 04:50 Random Glucose 130 mg/dL (75-110) H 07/20/18 04:50 Calcium 9.7 mg/dL (8.4-10.2) 07/20/18 04:50 Total Bilirubin 0.9 mg/dl (0.2-1.3) 07/17/18 12:40 AST 26 U/L (17-59) 07/17/18 12:40 ALT 32 U/L (21-72) 07/17/18 12:40 Alkaline Phosphatase 56 U/L (38-126) 07/17/18 12:40 Troponin I < 0.0120 ng/mL (0.00-0.120) 07/17/18 12:40 Total Protein 7.4 G/DL (6.3-8.2) 07/17/18 12:40 Albumin 4.5 g/dL (3.5-5.0) 07/17/18 12:40 Globulin 2.9 gm/dL (2.2-3.9) 07/17/18 12:40 Albumin/Globulin Ratio 1.6 (1.0-2.1) 07/17/18 12:40 Blood Type O POSITIVE 07/17/18 12:40 Blood Type Confirm O POSITIVE 07/17/18 13:16 Antibody Screen Negative 07/17/18 12:40 BBK History Checked No verified bt 07/17/18 12:40
--- NOTE | 2018-07-23 16:56 | CP.PCM.PN ---
Subjective - Date & Time of Evaluation Date of Evaluation: 07/18/18 Time of Evaluation: 10:00 - Subjective Subjective: Patient is doing very well post op Has minimal pain on the op site Has no fever. Objective - Vital Signs/Intake and Output Vital Signs (last 24 hours): Temp Pulse Resp BP Pulse Ox 98.4 F 74 20 110/75 97 07/20/18 12:43 07/20/18 12:43 07/20/18 12:43 07/20/18 12:43 07/20/18 12:43 - Labs Labs: 07/20/18 04:50 07/20/18 04:50 PT 11.6 Seconds (9.8-13.1) 07/17/18 12:40 INR 1.0 07/17/18 12:40 APTT 31.5 Seconds (25.6-37.1) 07/17/18 12:40 - Head Exam Head Exam: NORMAL INSPECTION - Eye Exam Eye Exam: Normal appearance - Respiratory Exam Respiratory Exam: Clear to Ausculation Bilateral - Cardiovascular Exam Cardiovascular Exam: REGULAR RHYTHM - GI/Abdominal Exam GI & Abdominal Exam: Soft, Normal Bowel Sounds - Neurological Exam Neurological Exam: Awake, Oriented x3 Assessment and Plan (1) Cervical stenosis of spine Status: Acute (2) Renal insufficiency Status: Acute - Assessment and Plan (Free Text) Plan: Con tmeds Cont tx Cont PT subacute rehab eval
--- NOTE | 2018-07-23 16:59 | CP.PCM.PN ---
Subjective - Date & Time of Evaluation Date of Evaluation: 07/19/18 Time of Evaluation: 11:25 - Subjective Subjective: Patient is doing a lot better Has no chest pain or SOB Doing well with PT. Objective - Vital Signs/Intake and Output Vital Signs (last 24 hours): Temp Pulse Resp BP Pulse Ox 98.4 F 74 20 110/75 97 07/20/18 12:43 07/20/18 12:43 07/20/18 12:43 07/20/18 12:43 07/20/18 12:43 - Labs Labs: 07/20/18 04:50 07/20/18 04:50 PT 11.6 Seconds (9.8-13.1) 07/17/18 12:40 INR 1.0 07/17/18 12:40 APTT 31.5 Seconds (25.6-37.1) 07/17/18 12:40 - Head Exam Head Exam: NORMAL INSPECTION - Eye Exam Eye Exam: Normal appearance - ENT Exam ENT Exam: Mucous Membranes Moist - Respiratory Exam Respiratory Exam: Clear to Ausculation Bilateral - Cardiovascular Exam Cardiovascular Exam: REGULAR RHYTHM - GI/Abdominal Exam GI & Abdominal Exam: Normal Bowel Sounds - Neurological Exam Neurological Exam: Awake, Oriented x3 - Psychiatric Exam Psychiatric exam: Normal Mood Assessment and Plan (1) Cervical stenosis of spine Status: Acute (2) Renal insufficiency Status: Acute - Assessment and Plan (Free Text) Plan: Cont meds Cont tx Cont PT Subacute rehab eval
== END 2018-07-20 16:00 | DRG 472 ==
LOC: H.ER 10:52 → H.ERHOLD 12:08 → H.MEDSURG1 21:38 → H.TEL 07-18 11:41
PROVIDERS: ADMIT Family Medicine; ATTEND Family Medicine
PROC: 0RG20A0 Fusion of 2 or more Cervical Vertebral Joints with Interbody Fusion Device, Anterior Approach, Anterior Column, Open Approach (ICD-10-PCS; 2018-07-18)
PROC: 0RB30ZZ Excision of Cervical Vertebral Disc, Open Approach (ICD-10-PCS; principal; 2018-07-18 07:45)
DX: M47.12 Other spondylosis with myelopathy, cervical region (principal); F84.5 Asperger's syndrome; M50.01 Cervical disc disorder with myelopathy, high cervical region; M48.02 Spinal stenosis, cervical region; E87.6 Hypokalemia

== ENCOUNTER 2018-07-20 15:13 | Inpatient (IN) | payer OTHER ==
[2018-07-20 16:16] VITALS: BMI 24.0
[2018-07-20] MEDS ORDERED: Oxycodone/Acetaminophen 5/325 mg Tab PO PRN ×2 (16:24)
[2018-07-20 16:50] VITALS: RESP 20
--- NOTE | 2018-07-23 09:55 | CP.PCM.PN ---
Subjective - Date & Time of Evaluation Date of Evaluation: 07/23/18 Time of Evaluation: 07:30 - Subjective Subjective: Patient seen and examined OOB to chair comfortable. Pain well controlled. No acute events over weekend. Notes that his L sided weakness/stiffness has improved postop. Objective - Vital Signs/Intake and Output Vital Signs (last 24 hours): Temp Pulse Resp BP Pulse Ox 98.2 F 72 20 132/69 99 07/23/18 08:33 07/23/18 08:33 07/23/18 08:33 07/23/18 08:33 07/23/18 08:33 - Medications Medications: Current Medications Acetaminophen (Tylenol 325mg Tab) 650 mg PO Q4 PRN PRN Reason: Fever 101 degrees fahrenheit Acetaminophen (Tylenol 325mg Tab) 325 mg PO Q4 PRN PRN Reason: Pain, Mild (1-3) Cyclobenzaprine HCl (Flexeril) 10 mg PO Q8 PRN PRN Reason: Muscle spasm Docusate Sodium (Colace) 100 mg PO BID YUE Last Admin: 07/23/18 08:12 Dose: Not Given Oxycodone/Acetaminophen (Percocet 5/325 Mg Tab) 1 tab PO Q4 PRN PRN Reason: Pain, Mild (1-3) Stop: 07/23/18 16:25 Oxycodone/Acetaminophen (Percocet 5/325 Mg Tab) 2 tab PO Q4 PRN PRN Reason: Pain, moderate (4-7) Stop: 07/23/18 16:25 - Extremities Exam Additional comments: Dressings CDI Incision CDI with dermabond, drain site CDI no masses, no lesions, no deformities no midline or paraspinal tenderness Gross NVI distally to UE HAGEN, diminished motor to LUE and LLE radial pulses intact neg clonus Assessment and Plan (1) Cervical stenosis of spine Assessment & Plan: -Dressings removed, wound clean and dry, leave to air -PT/OT WBAT -neurosurgically stable -above d/w Dr. Wright in agreement Status: Acute
--- NOTE | 2018-07-23 17:31 | CP.PCM.HP ---
History of Present Illness - History of Present Illness History of Present Illness: Abram is a 58 y/o male with hx of cervical stenosis and had a recent laminectomy of the C spine. Admitted to TCU for further rehab and PT. Post op period was unremarkable except for slight pain on op site. He was noted to have problems with gait as a result of the chronic cervical disc condition. He was noted to have renal insufficiency with GFR of 37. Also noted was slight increase in FBS. Not on any medication for DM 2. Present on Admission - Present on Admission Any Indicators Present on Admission: No History of DVT/PE: No History of Uncontrolled Diabetes: No Urinary Catheter: No Decubitus Ulcer Present: No Past Patient History - Past Medical History & Family History Past Medical History?: No - Past Social History Smoking Status: Never Smoked - CARDIAC Hx Cardiac Disorders: No - PULMONARY Hx Respiratory Disorders: No - NEUROLOGICAL Hx Neurological Disorder: Yes Other/Comment: aspergen's syndrome - HEENT Hx HEENT Problems: No - RENAL Hx Chronic Kidney Disease: No - ENDOCRINE/METABOLIC Hx Endocrine Disorders: No - HEMATOLOGICAL/ONCOLOGICAL Hx Blood Disorders: No Hx AIDS: No Hx Human Immunodeficiency Virus (HIV): No - INTEGUMENTARY Hx Dermatological Problems: No - MUSCULOSKELETAL/RHEUMATOLOGICAL Hx Musculoskeletal Disorders: Yes Hx Falls: No - GASTROINTESTINAL Hx Gastrointestinal Disorders: No - GENITOURINARY/GYNECOLOGICAL Hx Genitourinary Disorders: No - PSYCHIATRIC Hx Psychophysiologic Disorder: No Hx Substance Use: No - SURGICAL HISTORY Hx Surgeries: No - ANESTHESIA Hx Anesthesia: No Hx Anesthesia Reactions: No Meds Allergies/Adverse Reactions: Allergies Allergy/AdvReac Type Severity Reaction Status Date / Time No Known Allergies Allergy Verified 07/20/18 16:11 Physical Exam - Head Exam Head Exam: NORMAL INSPECTION - Eye Exam Eye Exam: Normal appearance - Respiratory Exam Respiratory Exam: Clear to Auscultation Bilateral - Cardiovascular Exam Cardiovascular Exam: REGULAR RHYTHM - GI/Abdominal Exam GI & Abdominal Exam: Normal Bowel Sounds - Neurological Exam Neurological exam: CN II-XII Intact, Oriented x3 - Psychiatric Exam Psychiatric exam: Normal Mood - Skin Skin Exam: Normal Color Results - Vital Signs Recent Vital Signs: Last Vital Signs Temp 96.8 F L 07/23/18 15:55 Pulse 100 H 07/23/18 15:55 Resp 20 07/23/18 15:55 BP 151/84 H 11/26/18 15:55 Pulse Ox 99 07/23/18 15:55 Assessment & Plan (1) Ataxia Status: Acute (2) Cervical stenosis of spine Status: Acute (3) Renal insufficiency Status: Acute (4) Hyperglycemia Status: Acute - Assessment and Plan (Free Text) Plan: Cont med s PT eval and tx Pain meds cont tx
--- NOTE | 2018-07-23 17:37 | CP.PCM.PN ---
Subjective - Date & Time of Evaluation Date of Evaluation: 07/22/18 Time of Evaluation: 11:00 - Subjective Subjective: patient is doing a lot better. Has no chest pain or SOB Afebrile. Objective - Vital Signs/Intake and Output Vital Signs (last 24 hours): Temp Pulse Resp BP Pulse Ox 96.8 F L 100 H 20 151/84 H 99 07/23/18 15:55 07/23/18 15:55 07/23/18 15:55 07/23/18 15:55 07/23/18 15:55 - Medications Medications: Current Medications Acetaminophen (Tylenol 325mg Tab) 650 mg PO Q4 PRN PRN Reason: Fever 101 degrees fahrenheit Acetaminophen (Tylenol 325mg Tab) 325 mg PO Q4 PRN PRN Reason: Pain, Mild (1-3) Cyclobenzaprine HCl (Flexeril) 10 mg PO Q8 PRN PRN Reason: Muscle spasm Docusate Sodium (Colace) 100 mg PO BID UYE Last Admin: 07/23/18 16:28 Dose: Not Given - Head Exam Head Exam: NORMAL INSPECTION - Eye Exam Eye Exam: Normal appearance - ENT Exam ENT Exam: Mucous Membranes Moist - Respiratory Exam Respiratory Exam: Clear to Ausculation Bilateral - GI/Abdominal Exam GI & Abdominal Exam: Normal Bowel Sounds - Neurological Exam Neurological Exam: Awake, Oriented x3 Assessment and Plan (1) Ataxia Status: Acute (2) Cervical stenosis of spine Status: Acute (3) Renal insufficiency Status: Acute (4) Hyperglycemia Status: Acute - Assessment and Plan (Free Text) Plan: Cont meds Cont tx Cont PT check labs
--- NOTE | 2018-07-23 17:38 | CP.PCM.PN ---
Subjective - Date & Time of Evaluation Date of Evaluation: 07/23/18 Time of Evaluation: 17:37 - Subjective Subjective: Patient is doing a lot better Has no chest pain or SOB Afebrile Objective - Vital Signs/Intake and Output Vital Signs (last 24 hours): Temp Pulse Resp BP Pulse Ox 96.8 F L 100 H 20 151/84 H 99 07/23/18 15:55 07/23/18 15:55 07/23/18 15:55 07/23/18 15:55 07/23/18 15:55 - Medications Medications: Current Medications Acetaminophen (Tylenol 325mg Tab) 650 mg PO Q4 PRN PRN Reason: Fever 101 degrees fahrenheit Acetaminophen (Tylenol 325mg Tab) 325 mg PO Q4 PRN PRN Reason: Pain, Mild (1-3) Cyclobenzaprine HCl (Flexeril) 10 mg PO Q8 PRN PRN Reason: Muscle spasm Docusate Sodium (Colace) 100 mg PO BID YUE Last Admin: 07/23/18 16:28 Dose: Not Given - Head Exam Head Exam: NORMAL INSPECTION - Eye Exam Eye Exam: Normal appearance - ENT Exam ENT Exam: Mucous Membranes Moist - Respiratory Exam Respiratory Exam: Clear to Ausculation Bilateral - Cardiovascular Exam Cardiovascular Exam: REGULAR RHYTHM - GI/Abdominal Exam GI & Abdominal Exam: Normal Bowel Sounds - Neurological Exam Neurological Exam: Awake, Oriented x3 Assessment and Plan (1) Ataxia Status: Acute (2) Cervical stenosis of spine Status: Acute (3) Renal insufficiency Status: Acute (4) Hyperglycemia Status: Acute - Assessment and Plan (Free Text) Plan: Cont meds Cont tx Cont PT check labs a1c lipid
[2018-07-24 07:08] LABS: BASO # 0.1 K/uL (0.0-0.2); BASO % 0.7 % (0.0-2.0); EOS # 0.2 K/uL (0.0-0.7); EOS % 1.8 % (0.0-4.0); HEMOGLOBIN 14.5 g/dL (12.0-18.0); LYMPH # 1.7 K/uL (1.0-4.3); MEAN CORPUSCULAR HEMOGLOBIN 31.3 pg (27.0-31.0); MEAN CORPUSCULAR HGB CONC 34.1 g/dL (33.0-37.0); MEAN PLATELET VOLUME 9.1 fl (7.2-11.7); MONO # 0.6 K/uL (0.0-0.8); MONO % 5.6 % (0.0-10.0); NEUT # 8.3 K/uL (1.8-7.0); NEUT % 75.9 % (50.0-75.0); RBC 4.64 Mil/uL (4.40-5.90); RED CELL DISTRIBUTION WIDTH 14.1 % (11.5-14.5); WHITE BLOOD COUNT 10.9 K/uL (4.8-10.8)
[2018-07-24 07:15] LABS: ALB/GLOB RATIO 1.4 (1.0-2.1); ALBUMIN 4.6 g/dL (3.5-5.0); CALCIUM 10.3 mg/dL (8.4-10.2)
--- NOTE | 2018-07-24 17:46 | CP.PCM.CON ---
History of Present Illness - History of Present Illness History of Present Illness: Dr Cruz PMR consultation on Carlos Vazquez, born 1960 who has been admitted to the [facility] TCU for MEAGAN following a C3/4 discectomy and fusion by Dr Wright. Post op already feeling much better. Had at least 4-5 months (likely long er) of progressive weakness and a decrease in function. MRI revealed severe C3/4 stenosis. He has had good bowel and bladder function post op. Review of Systems - Constitutional Constitutional: absent: Chills, Daytime Sleepiness - EENT Eyes: absent: Change in Vision Ears: absent: Ear Discharge, Ear Pain Nose/Mouth/Throat: absent: Nasal Congestion - Cardiovascular Cardiovascular: absent: Chest Pain - Respiratory Respiratory: absent: Dyspnea, Hemoptysis - Gastrointestinal Gastrointestinal: absent: Belching, Constipation - Musculoskeletal Musculoskeletal: absent: Back Pain - Neurological Neurological: Abnormal Gait, Paresthesias (but greatly improved) Past Patient History - Past Medical History & Family History Past Medical History?: No - Past Social History Smoking Status: Never Smoked Drugs: Denies - CARDIAC Hx Cardiac Disorders: No - PULMONARY Hx Respiratory Disorders: No - NEUROLOGICAL Hx Neurological Disorder: Yes Other/Comment: aspergen's syndrome - HEENT Hx HEENT Problems: No - RENAL Hx Chronic Kidney Disease: No - ENDOCRINE/METABOLIC Hx Endocrine Disorders: No - HEMATOLOGICAL/ONCOLOGICAL Hx Blood Disorders: No Hx AIDS: No Hx Human Immunodeficiency Virus (HIV): No - INTEGUMENTARY Hx Dermatological Problems: No - MUSCULOSKELETAL/RHEUMATOLOGICAL Hx Musculoskeletal Disorders: Yes Hx Falls: No - GASTROINTESTINAL Hx Gastrointestinal Disorders: No - GENITOURINARY/GYNECOLOGICAL Hx Genitourinary Disorders: No - PSYCHIATRIC Hx Psychophysiologic Disorder: No Hx Substance Use: No - SURGICAL HISTORY Hx Surgeries: No - ANESTHESIA Hx Anesthesia: No Hx Anesthesia Reactions: No Meds Allergies/Adverse Reactions: Allergies Allergy/AdvReac Type Severity Reaction Status Date / Time No Known Allergies Allergy Verified 07/20/18 16:11 - Medications Medications: Current Medications Acetaminophen (Tylenol 325mg Tab) 650 mg PO Q4 PRN PRN Reason: Fever 101 degrees fahrenheit Acetaminophen (Tylenol 325mg Tab) 325 mg PO Q4 PRN PRN Reason: Pain, Mild (1-3) Cyclobenzaprine HCl (Flexeril) 10 mg PO Q8 PRN PRN Reason: Muscle spasm Docusate Sodium (Colace) 100 mg PO BID YUE Last Admin: 07/24/18 17:13 Dose: Not Given Physical Exam - Constitutional Appears: Well, Non-toxic - Head Exam Head Exam: ATRAUMATIC, NORMAL INSPECTION, NORMOCEPHALIC - Eye Exam Eye Exam: EOMI - ENT Exam ENT Exam: Mucous Membranes Moist - Respiratory Exam Respiratory Exam: NORMAL BREATHING PATTERN. absent: Chest Wall Tenderness - Cardiovascular Exam Cardiovascular Exam: REGULAR RHYTHM - GI/Abdominal Exam GI & Abdominal Exam: absent: Diminished Bowel Sounds, Distended - Extremities Exam Extremities exam: Negative for: calf tenderness, pedal edema - Neurological Exam Neurological exam: Alert, CN II-XII Intact, Oriented x3 - Psychiatric Exam Psychiatric exam: Normal Affect, Normal Mood (talkative) - Skin Skin Exam: Warm (right lateral lower cervical incision CDI) Results - Vital Signs Recent Vital Signs: Last Vital Signs Temp 97.5 F L 07/24/18 16:23 Pulse 80 07/24/18 16:23 Resp 20 07/24/18 16:23 BP 119/73 07/24/18 16:23 Pulse Ox 99 07/24/18 16:23 - Labs Result Diagrams: 07/24/18 06:30 07/24/18 06:30 Labs: Laboratory Results - last 24 hr 07/24/18 07/24/18 07/24/18 06:30 06:30 06:30 WBC 10.9 H RBC 4.64 Hgb 14.5 Hct 42.7 MCV 92.0 MCH 31.3 H MCHC 34.1 RDW 14.1 Plt Count 202 MPV 9.1 Neut % (Auto) 75.9 H Lymph % (Auto) 16.0 L Nolan % (Auto) 5.6 Eos % (Auto) 1.8 Baso % (Auto) 0.7 Neut # (Auto) 8.3 H Lymph # (Auto) 1.7 Nolan # (Auto) 0.6 Eos # (Auto) 0.2 Baso # (Auto) 0.1 Sodium 137 Potassium 4.4 Chloride 92 L Carbon Dioxide 31 H Anion Gap 18 BUN 44 H Creatinine 2.0 H Est GFR ( Amer) 42 Est GFR (Non-Af Amer) 34 Random Glucose 117 H Hemoglobin A1c 5.6 Calcium 10.3 H Total Bilirubin 0.8 AST 36 ALT 69 Alkaline Phosphatase 78 Total Protein 7.8 Albumin 4.6 Globulin 3.2 Albumin/Globulin Ratio 1.4 Triglycerides 78 Cholesterol 129 LDL Cholesterol Direct 63 HDL Cholesterol 59 TSH 3rd Generation 1.46 Assessment & Plan - Assessment and Plan (Free Text) Assessment: s/p C3/4 discectomy and fusion post op improved recovery with full ROM except for some restricted finger joint ROM which is likely secondary to progressive and significant hand weakness. bowel and bladder and doing ok pain is controlled continue PT/OT to help increase functional gains
--- NOTE | 2018-07-24 19:14 | CP.PCM.PN ---
Subjective - Date & Time of Evaluation Date of Evaluation: 07/24/18 Time of Evaluation: 11:00 - Subjective Subjective: patient seen and examined at bedside. no acute events overnight. pain well controlled doing well with PT Objective - Vital Signs/Intake and Output Vital Signs (last 24 hours): Temp Pulse Resp BP Pulse Ox 97.5 F L 80 20 119/73 99 07/24/18 16:23 07/24/18 16:23 07/24/18 16:23 07/24/18 16:23 07/24/18 16:23 - Medications Medications: Current Medications Acetaminophen (Tylenol 325mg Tab) 650 mg PO Q4 PRN PRN Reason: Fever 101 degrees fahrenheit Acetaminophen (Tylenol 325mg Tab) 325 mg PO Q4 PRN PRN Reason: Pain, Mild (1-3) Cyclobenzaprine HCl (Flexeril) 10 mg PO Q8 PRN PRN Reason: Muscle spasm Docusate Sodium (Colace) 100 mg PO BID YUE Last Admin: 07/24/18 17:13 Dose: Not Given - Labs Labs: 07/24/18 06:30 07/24/18 06:30 - Additional Findings Additional findings: - Head Exam Head Exam: NORMAL INSPECTION - Eye Exam Eye Exam: Normal appearance - Respiratory Exam Respiratory Exam: Clear to Ausculation Bilateral - Cardiovascular Exam Cardiovascular Exam: REGULAR RHYTHM - GI/Abdominal Exam GI & Abdominal Exam: Normal Bowel Sounds - Neurological Exam Neurological Exam: Awake, Oriented x3 Assessment and Plan (1) Cervical stenosis of spine Status: Acute (2) Renal insufficiency Status: Chronic - Assessment and Plan (Free Text) Assessment: Cont meds Cont tx Cont PT obtain PMR consult, Dr. Cruz
--- NOTE | 2018-07-26 12:43 | CP.PCM.PN ---
Subjective - Date & Time of Evaluation Date of Evaluation: 07/26/18 Time of Evaluation: 09:30 - Subjective Subjective: Patient seen and examined at bedside comfortable. No c/o pain. Tolerating PT well, ambulating with RW. No new complaints. Objective - Vital Signs/Intake and Output Vital Signs (last 24 hours): Temp Pulse Resp BP Pulse Ox 97.2 F L 75 20 128/76 100 07/26/18 08:35 07/26/18 08:35 07/26/18 08:35 07/26/18 08:35 07/26/18 08:35 - Medications Medications: Current Medications Acetaminophen (Tylenol 325mg Tab) 650 mg PO Q4 PRN PRN Reason: Fever 101 degrees fahrenheit Acetaminophen (Tylenol 325mg Tab) 325 mg PO Q4 PRN PRN Reason: Pain, Mild (1-3) Cyclobenzaprine HCl (Flexeril) 10 mg PO Q8 PRN PRN Reason: Muscle spasm Docusate Sodium (Colace) 100 mg PO BID YUE Last Admin: 07/26/18 08:36 Dose: Not Given - Labs Labs: 07/24/18 06:30 07/24/18 06:30 - Neck Exam Additional comments: Incision CDI with dermabond, drain site well healed no masses, no lesions, no deformities, no hematoma no midline or paraspinal tenderness Gross NVI distally to UE HAGEN, diminished motor to LUE and LLE radial pulses intact neg clonus Assessment and Plan (1) Cervical stenosis of spine Assessment & Plan: -May shower, do not scrub incision site, no submerging -PT/OT WBAT -neurosurgically stable -above d/w Dr. Wright in agreement Status: Acute
[2018-07-26 15:55] VITALS: O2SAT 97
--- NOTE | 2018-07-26 18:09 | CP.PCM.PN ---
Subjective - Date & Time of Evaluation Date of Evaluation: 07/26/18 Time of Evaluation: 18:06 - Subjective Subjective: Patient seen in the room in very good spirits appears to have improved finger flexion happy with balance and gait improvement as well continue current care Objective - Vital Signs/Intake and Output Vital Signs (last 24 hours): Temp Pulse Resp BP Pulse Ox 98.6 F 78 20 129/76 97 07/26/18 15:55 07/26/18 15:55 07/26/18 15:55 07/26/18 15:55 07/26/18 15:55 - Medications Medications: Current Medications Acetaminophen (Tylenol 325mg Tab) 650 mg PO Q4 PRN PRN Reason: Fever 101 degrees fahrenheit Acetaminophen (Tylenol 325mg Tab) 325 mg PO Q4 PRN PRN Reason: Pain, Mild (1-3) Cyclobenzaprine HCl (Flexeril) 10 mg PO Q8 PRN PRN Reason: Muscle spasm Docusate Sodium (Colace) 100 mg PO BID YUE Last Admin: 07/26/18 16:36 Dose: Not Given - Labs Labs: 07/24/18 06:30 07/24/18 06:30
[2018-07-27 08:38] VITALS: BP 124/80; PULSE 65; TEMP 98.4
--- NOTE | 2018-07-27 11:29 | CP.PCM.DIS ---
Provider - Provider Date of Admission: 07/20/18 16:17 Attending physician: Eleazar Garza MD Consults: 07/20/18 16:30 Neuro Surgery Consult Routine Comment: Consulting Provider: Estuardo Wright Consulting Physician: Estuardo Wright Reason for Consult: cervical spine stenosis 07/20/18 16:46 Social Work Referral Routine Comment: pt lives along Physician Instructions: Reason For Exam: lives alone 07/24/18 11:39 Physiatry Consult Routine Comment: Consulting Provider: Harmeet Cruz Consulting Physician: Harmeet Cruz Reason for Consult: Dx: s/p cervical disectomy; PT/OT Diagnosis - Discharge Diagnosis (1) Cervical stenosis of spine Status: Acute (2) Renal insufficiency Status: Chronic Hospital Course - Lab Results Lab Results: Most Recent Lab Values WBC 10.9 K/uL (4.8-10.8) H 07/24/18 06:30 RBC 4.64 Mil/uL (4.40-5.90) 07/24/18 06:30 Hgb 14.5 g/dL (12.0-18.0) 07/24/18 06:30 Hct 42.7 % (35.0-51.0) 07/24/18 06:30 MCV 92.0 fl (80.0-94.0) 07/24/18 06:30 MCH 31.3 pg (27.0-31.0) H 07/24/18 06:30 MCHC 34.1 g/dL (33.0-37.0) 07/24/18 06:30 RDW 14.1 % (11.5-14.5) 07/24/18 06:30 Plt Count 202 K/uL (130-400) 07/24/18 06:30 MPV 9.1 fl (7.2-11.7) 07/24/18 06:30 Neut % (Auto) 75.9 % (50.0-75.0) H 07/24/18 06:30 Lymph % (Auto) 16.0 % (20.0-40.0) L 07/24/18 06:30 Storey % (Auto) 5.6 % (0.0-10.0) 07/24/18 06:30 Eos % (Auto) 1.8 % (0.0-4.0) 07/24/18 06:30 Baso % (Auto) 0.7 % (0.0-2.0) 07/24/18 06:30 Neut # (Auto) 8.3 K/uL (1.8-7.0) H 07/24/18 06:30 Lymph # (Auto) 1.7 K/uL (1.0-4.3) 07/24/18 06:30 Storey # (Auto) 0.6 K/uL (0.0-0.8) 07/24/18 06:30 Eos # (Auto) 0.2 K/uL (0.0-0.7) 07/24/18 06:30 Baso # (Auto) 0.1 K/uL (0.0-0.2) 07/24/18 06:30 Sodium 137 mmol/l (132-148) 07/24/18 06:30 Potassium 4.4 MMOL/L (3.6-5.0) 07/24/18 06:30 Chloride 92 mmol/L (98-107) L 07/24/18 06:30 Carbon Dioxide 31 mmol/L (22-30) H 07/24/18 06:30 Anion Gap 18 (10-20) 07/24/18 06:30 BUN 44 mg/dl (9-20) H 07/24/18 06:30 Creatinine 2.0 mg/dl (0.8-1.5) H 07/24/18 06:30 Est GFR ( Amer) 42 07/24/18 06:30 Est GFR (Non-Af Amer) 34 07/24/18 06:30 Random Glucose 117 mg/dL (75-110) H 07/24/18 06:30 Hemoglobin A1c 5.6 % (4.2-6.5) 07/24/18 06:30 Calcium 10.3 mg/dL (8.4-10.2) H 07/24/18 06:30 Total Bilirubin 0.8 mg/dl (0.2-1.3) 07/24/18 06:30 AST 36 U/L (17-59) 07/24/18 06:30 ALT 69 U/L (21-72) 07/24/18 06:30 Alkaline Phosphatase 78 U/L (38-126) 07/24/18 06:30 Total Protein 7.8 G/DL (6.3-8.2) 07/24/18 06:30 Albumin 4.6 g/dL (3.5-5.0) 07/24/18 06:30 Globulin 3.2 gm/dL (2.2-3.9) 07/24/18 06:30 Albumin/Globulin Ratio 1.4 (1.0-2.1) 07/24/18 06:30 Triglycerides 78 mg/DL (0-149) 07/24/18 06:30 Cholesterol 129 mg/dL (0-199) 07/24/18 06:30 LDL Cholesterol Direct 63 mg/dL (0-129) 07/24/18 06:30 HDL Cholesterol 59 MG/DL (30-70) 07/24/18 06:30 TSH 3rd Generation 1.46 mIU/ML (0.46-4.68) 07/24/18 06:30 Discharge Exam - Head Exam Head Exam: ATRAUMATIC, NORMAL INSPECTION, NORMOCEPHALIC Discharge Plan - Follow Up Plan Condition: GOOD Disposition: HOME/ ROUTINE Instructions: Spinal Fusion, Preventing Falls, Anterior Cervical Fusion (DC), Postspine Surgery Precautions Additional Instructions: FOLLOW UP WITH DR. WRIGHT IN 2 WEEKS YOU MAY SHOWER IF YOU DEVELOP FEVER AND SEVERE PAIN AT THE INCISION SITE GO TO EMERGENCY ROOM Referrals: Estuardo Wright MD [Staff Provider] -
== END 2018-07-27 13:00 | disposition home health service (06) | DRG 552 ==
LOC: H.TCU 16:17
PROVIDERS: ADMIT Family Medicine; ATTEND Family Medicine
PROC: F07M6FZ Therapeutic Exercise Treatment of Musculoskeletal System - Whole Body using Assistive, Adaptive, Supportive or Protective Equipment (ICD-10-PCS; 2018-07-23)
PROC: F08Z4FZ Home Management Treatment using Assistive, Adaptive, Supportive or Protective Equipment (ICD-10-PCS; principal; 2018-07-25)
DX: M48.02 Spinal stenosis, cervical region (principal); N28.9 Disorder of kidney and ureter, unspecified; R27.0 Ataxia, unspecified; R73.9 Hyperglycemia, unspecified